=== PATIENT | female | born 2000 | race Caucasian/White ===

== ENCOUNTER 2023-08-31 19:34 | Emergency (ER) | payer OTHER ==
[2023-08-31 19:47] VITALS: BP 136/87; PULSE 99; RESP 18; TEMP 98.8; BMI 29.2
[2023-08-31 20:40] LABS: EPI CELLS >36 /uL (0-25.1); HYALINE CASTS 0 /uL (0-3.1); URINE APPEARANCE CLOUDY; URINE BACTERIA 586 /uL (0-1359); URINE BILIRUBIN NEGATIVE (NEGATIVE); URINE COLOR YELLOW; URINE GLUCOSE (UA) NEGATIVE (NEGATIVE); URINE KETONE TRACE (NEGATIVE); URINE LEUK ESTERASE TRACE (NEGATIVE); URINE NITRITE NEGATIVE (NEGATIVE); URINE PROTEIN NEGATIVE (NEGATIVE); URINE RBC 5 /uL (0-23.9); URINE UROBILINOGEN 0.2 mg/dL (0.2-1.0); URINE WBC 79 /uL (0-25.8)
[2023-08-31 20:47] LABS: BASO % 0.5 % (0-2.0); EOS % 0.2 % (0-4.5); HEMATOCRIT 32.1 % (32.4-45.2); HEMOGLOBIN 10.2 GM/dL (10.7-15.3); LYMPH % 16.9 % (8-40); MCH 22.3 pg (25.7-33.7); MCHC 31.6 g/dl (32.0-36.0); MEAN CELL VOLUME 70.5 fl (80-96); MEAN PLT VOLUME 7.9 fl (7.5-11.1); MONO % 6.2 % (3.8-10.2); NEUT % 76.2 % (42.8-82.8); PLATELET COUNT 469 10^3/uL (134-434); RBC 4.56 M/mm3 (3.60-5.2); RDW 18.3 % (11.6-15.6); WHITE BLOOD COUNT 13.1 K/mm3 (4.0-10.0)
[2023-08-31 21:05] LABS: CALCIUM 9.7 mg/dL (8.5-10.1)
[2023-08-31 21:06] LABS: ALBUMIN 3.6 g/dl (3.4-5.0); BLOOD UREA NITROGEN 10.3 mg/dL (7-18)
[2023-08-31 21:09] LABS: CREATININE 0.5 mg/dL (0.55-1.3)
[2023-08-31 21:10] LABS: BILIRUBIN,TOTAL 0.3 mg/dL (0.2-1); TOT PROT 8.2 g/dl (6.4-8.2)
[2023-08-31] MEDS: SODIUM CHLORIDE 0.9% 500 ML INFUS.BAG IV ONE (21:37)
[2023-08-31] MEDS ORDERED: CEPHALEXIN MONOHYDRATE 500 MG CAPSULE (UD) ONE (21:51)
[2023-08-31] MEDS: CEPHALEXIN MONOHYDRATE 500 MG CAPSULE (UD) PO ONE (22:10)
== END 2023-09-01 00:59 | disposition home or self-care (01) ==
LOC: JER 19:34
DX: O20.0 Threatened abortion (principal); N39.0 Urinary tract infection, site not specified; R31.9 Hematuria, unspecified
CPT/HCPCS: 76817-TC; 80053; 81003; 84702; 85025; 86850; 86900; 86901; 87086; 87491; 87591; 87661; 93005; 93010; 99285-25

== ENCOUNTER 2023-09-28 17:10 | Emergency (ER) | payer OTHER ==
[2023-09-28 17:15] VITALS: BP 133/82; PULSE 92; RESP 18; TEMP 98.1; BMI 29.2
[2023-09-28 18:00] LABS: HCG,QUALITATIVE URINE Positive
[2023-09-28 18:00] LABS: BASO % 0.5 % (0-2.0); EOS % 0.4 % (0-4.5); HEMATOCRIT 35.4 % (32.4-45.2); HEMOGLOBIN 11.1 GM/dL (10.7-15.3); LYMPH % 19.7 % (8-40); MCH 23.7 pg (25.7-33.7); MCHC 31.5 g/dl (32.0-36.0); MEAN CELL VOLUME 75.2 fl (80-96); MONO % 7.9 % (3.8-10.2); NEUT % 71.5 % (42.8-82.8); PLATELET COUNT 403 10^3/uL (134-434); RBC 4.71 M/mm3 (3.60-5.2); RDW 22.5 % (11.6-15.6); WHITE BLOOD COUNT 10.2 K/mm3 (4.0-10.0)
[2023-09-28 18:11] LABS: POTASSIUM 4.1 mmol/L (3.5-5.1)
[2023-09-28 18:12] LABS: EPI CELLS >36 /uL (0-25.1); HYALINE CASTS 1 /uL (0-3.1); URINE APPEARANCE CLEAR; URINE BACTERIA 1344 /uL (0-1359); URINE BILIRUBIN NEGATIVE (NEGATIVE); URINE COLOR YELLOW; URINE GLUCOSE (UA) NEGATIVE (NEGATIVE); URINE KETONE NEGATIVE (NEGATIVE); URINE LEUK ESTERASE 2+ (NEGATIVE); URINE NITRITE NEGATIVE (NEGATIVE); URINE PROTEIN NEGATIVE (NEGATIVE); URINE UROBILINOGEN 0.2 mg/dL (0.2-1.0); URINE WBC 73 /uL (0-25.8)
[2023-09-28 18:13] LABS: CALCIUM 9.2 mg/dL (8.5-10.1)
[2023-09-28 18:14] LABS: ALBUMIN 3.2 g/dl (3.4-5.0); BLOOD UREA NITROGEN 5.8 mg/dL (7-18)
[2023-09-28 18:16] LABS: CREATININE 0.5 mg/dL (0.55-1.3)
[2023-09-28 18:18] LABS: BILIRUBIN,TOTAL 0.2 mg/dL (0.2-1); TOT PROT 7.8 g/dl (6.4-8.2)
[2023-09-28] MEDS ORDERED: NITROFURANTOIN MACROCRYSTAL 50 MG CAPSULE (FP) ONE (18:43)
[2023-09-28] MEDS: NITROFURANTOIN MONOHYD/M-CRYST 100 MG CAPSULE PO ONE (18:46)
[2023-09-28 19:14] LABS: EPI CELLS 34 /uL (0-25.1); HYALINE CASTS 1 /uL (0-3.1); PH,URINE 5.5 (5.0-8.0); URINE APPEARANCE CLEAR; URINE BACTERIA 533 /uL (0-1359); URINE BILIRUBIN NEGATIVE (NEGATIVE); URINE COLOR YELLOW; URINE GLUCOSE (UA) NEGATIVE (NEGATIVE); URINE KETONE NEGATIVE (NEGATIVE); URINE LEUK ESTERASE TRACE (NEGATIVE); URINE NITRITE NEGATIVE (NEGATIVE); URINE PROTEIN NEGATIVE (NEGATIVE); URINE RBC 11 /uL (0-23.9); URINE UROBILINOGEN 0.2 mg/dL (0.2-1.0); URINE WBC 38 /uL (0-25.8)
[2023-09-28 19:46] LABS: ANISOCYTOSIS 3+; MACROCYTOSIS 1+
[2023-09-28 20:53] LABS: URINE RBC 31.5 /uL (0-23.9)
== END 2023-09-28 19:37 | disposition home or self-care (01) ==
LOC: JER 17:10
DX: O20.9 Hemorrhage in early pregnancy, unspecified (principal); Z3A.14 14 weeks gestation of pregnancy
CPT/HCPCS: 36415; 76801-TC; 80053; 81003; 84702; 84703; 85025; 86850; 86900; 86901; 99284-25

== ENCOUNTER 2023-10-08 15:22 | Emergency (ER) | payer OTHER ==
[2023-10-08 15:27] VITALS: BP 127/82; PULSE 100; RESP 19; TEMP 97.9; BMI 28.7
== END 2023-10-08 16:48 | disposition home or self-care (01) ==
LOC: JERFT 15:22
DX: O99.891 Other specified diseases and conditions complicating pregnancy (principal); M79.10 Myalgia, unspecified site; R05.9 Cough, unspecified; J02.9 Acute pharyngitis, unspecified; R09.81 Nasal congestion; B34.9 Viral infection, unspecified; Z3A.15 15 weeks gestation of pregnancy; Z20.822 Contact with and (suspected) exposure to COVID-19
CPT/HCPCS: 0241U-QW; 87651; 99283-25

== ENCOUNTER 2023-10-20 03:02 | Emergency (ER) | payer OTHER ==
[2023-10-20 03:12] VITALS: BP 115/91; PULSE 85; RESP 18; TEMP 98.2; BMI 29.2
== END 2023-10-20 04:38 | disposition home or self-care (01) ==
LOC: JER 03:02
DX: O20.9 Hemorrhage in early pregnancy, unspecified (principal); Z3A.17 17 weeks gestation of pregnancy
CPT/HCPCS: 99282-25

== ENCOUNTER 2024-03-29 10:07 | Inpatient (IN) | payer OTHER ==
[2024-03-29] MEDS: ELECTROLYTE-148 SOLN 1,000 ML IV SCH (12:05)
[2024-03-29 12:17] LABS: BASO % 0.4 % (0-2.0); EOS % 0.1 % (0-4.5); HEMATOCRIT 39.7 % (32.4-45.2); HEMOGLOBIN 12.8 GM/dL (10.7-15.3); LYMPH % 10.7 % (8-40); MCH 29.2 pg (25.7-33.7); MCHC 32.4 g/dl (32.0-36.0); MEAN CELL VOLUME 90.3 fl (80-96); MEAN PLT VOLUME 8.3 fl (7.5-11.1); MONO % 4.7 % (3.8-10.2); NEUT % 84.1 % (42.8-82.8); PLATELET COUNT 241 10^3/uL (134-434); RBC 4.39 M/mm3 (3.60-5.2); RDW 15.4 % (11.6-15.6); WHITE BLOOD COUNT 12.3 K/mm3 (4.0-10.0)
[2024-03-29 12:41] LABS: POTASSIUM 3.7 mmol/L (3.5-5.1)
[2024-03-29 12:43] LABS: ALBUMIN 2.8 g/dl (3.4-5.0); BLOOD UREA NITROGEN 5.8 mg/dL (7-18)
[2024-03-29 12:47] VITALS: BMI 33.3
[2024-03-29 12:47] LABS: CREATININE 0.4 mg/dL (0.55-1.3)
[2024-03-29 12:48] LABS: TOT PROT 7.1 g/dl (6.4-8.2)
[2024-03-29 12:52] LABS: BILIRUBIN,TOTAL 0.6 mg/dL (0.2-1)
[2024-03-29 13:08] LABS: INR 0.93 (0.83-1.09); PROTHROMBIN TIME (PATIENT) 10.5 SEC (9.7-13.0)
[2024-03-29 13:11] LABS: ACTIVATED PTT 29.5 SECONDS (25.2-36.5)
[2024-03-29] MEDS ORDERED: OXYTOCIN 20 UNITS in 0.9% NS 20 UNIT/1,000 ML INFUS.BAG IV ONE (15:18)
[2024-03-29] MEDS ORDERED: LIDOCAINE HCL 1% PRESERVATIVE FREE - 30ML VIAL ONE (15:18)
[2024-03-29] MEDS: OXYTOCIN 20 UNITS in 0.9% NS 20 UNIT/1,000 ML INFUS.BAG IV SCH (16:58)
[2024-03-29] MEDS ORDERED: MISOPROSTOL 200 MCG TABLET ONE (17:01)
[2024-03-29] MEDS: MISOPROSTOL 200 MCG TABLET NR ONE (17:03)
[2024-03-29] MEDS ORDERED: IBUPROFEN 600 MG TABLET (FP) PO PRN (17:35)
[2024-03-29] MEDS ORDERED: BENZOCAINE 28 GM HEMORRHOIDAL OINTMENT TP PRN (17:35)
[2024-03-29] MEDS ORDERED: BISACODYL 10 MG SUPP.RECT RC PRN (17:35)
[2024-03-29] MEDS ORDERED: ACETAMINOPHEN 325 MG TABLET (FP) ONE (17:45)
[2024-03-29] MEDS ORDERED: MISOPROSTOL 100 MCG TABLET PV ONE (17:46)
[2024-03-29] MEDS: ACETAMINOPHEN 325 MG TABLET (FP) PO PRN (17:54)
[2024-03-29] MEDS: WITCH HAZEL 50% (TUCKS) 40 PAD/JAR PAD TP PRN (20:15)
[2024-03-29] MEDS: BENZOCAINE 20% 57 GM BOTTLE TP PRN (20:15)
[2024-03-30 07:32] LABS: BASO % 0.2 % (0-2.0); HEMATOCRIT 31.9 % (32.4-45.2); HEMOGLOBIN 10.7 GM/dL (10.7-15.3); LYMPH % 10.5 % (8-40); MCH 30.2 pg (25.7-33.7); MCHC 33.6 g/dl (32.0-36.0); MEAN PLT VOLUME 8.3 fl (7.5-11.1); MONO % 7.8 % (3.8-10.2); NEUT % 81.5 % (42.8-82.8); PLATELET COUNT 206 10^3/uL (134-434); RBC 3.55 M/mm3 (3.60-5.2); RDW 15.3 % (11.6-15.6); WHITE BLOOD COUNT 14.9 K/mm3 (4.0-10.0)
[2024-03-30 14:14] VITALS: RESP 18
[2024-03-31 11:33] VITALS: BP 103/68; PULSE 77; TEMP 98.3
== END 2024-03-31 13:30 | disposition home or self-care (01) | DRG 560 ==
LOC: JDEL 10:07 → JLDR 11:15 → J3W 19:57
PROVIDERS: ADMIT Student in an Organized Health Care Education/Training Program; ATTEND Student in an Organized Health Care Education/Training Program
PROC: 0KQM0ZZ Repair Perineum Muscle, Open Approach (ICD-10-PCS; principal; 2024-03-29)
PROC: 10E0XZZ Delivery of Products of Conception, External Approach (ICD-10-PCS; 2024-03-29)
DX: O70.1 Second degree perineal laceration during delivery (principal); Z3A.40 40 weeks gestation of pregnancy; Z37.0 Single live birth
CPT/HCPCS: 36415; 59409; 80053; 85025; 85610; 85730; 86780; 86850; 86900; 86901